=== PATIENT | female | born 1960 | race Caucasian/White ===

== ENCOUNTER → 2020-05-07 | Outpatient (CLI) | payer OTHER ==
[2020-05-07 12:12] LABS: BASO % 0 % (0-3); EOS # 0.1 x10^3/uL (0.0-0.7); EOS % 2 % (0-3); HEMATOCRIT 44.7 % (36.0-47.0); HEMOGLOBIN 15.1 g/dL (12.0-15.5); LYMPH # 1.9 x10^3/uL (1.0-4.8); LYMPH % 27 % (24-48); MEAN CORPUSCULAR HEMOGLOBIN 29 pg (25-35); MEAN CORPUSCULAR HGB CONC 34 g/dL (31-37); MEAN CORPUSCULAR VOLUME 87 fL (79-100); MONO # 0.5 x10^3/uL (0.0-1.1); MONO % 7 % (0-9); NEUT # 4.6 x10^3/uL (1.8-7.7); NEUT % 64 % (31-73); PLATELET COUNT 260 x10^3/uL (140-400); RED BLOOD COUNT 5.14 x10^6/uL (3.50-5.40); RED CELL DISTRIBUTION WIDTH 14.4 % (11.5-14.5); WHITE BLOOD COUNT 7.2 x10^3/uL (4.0-11.0)
[2020-05-07 12:30] LABS: ALBUMIN 3.5 g/dL (3.4-5.0); ALBUMIN/GLOBULIN RATIO 0.9 (1.0-1.7); CALCIUM 9.4 mg/dL (8.5-10.1); CREATININE 0.7 mg/dL (0.6-1.0); GFR 85.6; TOTAL BILIRUBIN 0.8 mg/dL (0.2-1.0); TOTAL PROTEIN 7.4 g/dL (6.4-8.2)
[2020-05-07 12:33] LABS: CHOLESTEROL/HDL RATIO 3.3
[2020-05-08 01:11] LABS: HEMOGLOBIN A1C 5.9 % (4.8-5.6)
== END ==
LOC: LAB 11:32
PROVIDERS: ATTEND Nurse Practitioner Family
DX: Z13.9 Encounter for screening, unspecified (principal)
CPT/HCPCS: 36415; 80053; 80061; 83036; 84443; 85025

== ENCOUNTER → 2020-06-06 | Outpatient (CLI) | payer OTHER ==
[~2020-06-06] MED LIST: GADOTERATE 7.5 MMOL/15ML VIAL. IVP ONE
--- NOTE | 2020-06-06 15:12 | RAD ---
MRI MRI CERVICAL SPINE WITHOUT AND WITH IV CONTRAST DATE: 06/06/2020 11:16 AM INDICATION: NEOPLASM OF UNSPECIFIC BEHAVIOR OF BONE, SKIN, SOFT TISSUE TECHNIQUE: Multiplanar multisequence magnetic resonance imaging of the cervical spine was performed w ith and without administration of intravenous contrast using the standard cervical spine protocol. 13 cc of Clariscan contrast was administered intravenously during the examination. COMPARISON: None. FINDINGS: The cervical spine is normally aligned. No acute fracture. Mild multilevel degenerative disc desicca tion and disc height loss. Bone marrow signal intensity is normal. The spinal cord is normal in signal intensity. No abnormal enhancement. On the limited views of the cranial cavity and brain, the cerebellum and carlos have normal morphology and signal characteristics. No Chiari malformation. No soft tissue abnormality. Normal signal voids are present in the vertebral arteries. C2-3: Mild facet arthropathy. No significant spinal canal stenosis or neural foraminal narrowing. C3-4: Uncovertebral hypertrophy. Mild left neural foraminal narrowing. No spinal canal stenosis. C4-5: No significant spinal canal stenosis or neural foraminal narrowing. C5-6: Disc osteophyte complex. Uncovertebral hypertrophy. Mild bilateral neural foraminal narrowing. No spinal canal stenosis. C6-7: No significant spinal canal stenosis or neural foraminal narrowing. C7-T1: Uncovertebral hypertrophy. Mild bilateral neural foraminal narrowing. No spinal canal stenosis . IMPRESSION: 1. No evidence of osseous metastatic disease. 2. Mild cervical spondylosis. Electronically signed by: Jareth Hernandez MD (06/06/2020 3:09 PM) [id number]
== END ==
LOC: MRI 11:03
PROVIDERS: ATTEND Nurse Practitioner Family
DX: D49.2 Neoplasm of unspecified behavior of bone, soft tissue, and skin (principal); M47.812 Spondylosis without myelopathy or radiculopathy, cervical region; M25.78 Osteophyte, vertebrae
CPT/HCPCS: 72156; A9575